=== PATIENT | female | born 1990 | race Caucasian/White ===

== ENCOUNTER 2021-07-21 09:33 | Emergency (ER) | payer OTHER ==
[~2021-07-21 09:33] MED LIST: IBUPROFEN400 MG PO
[2021-07-21 10:47] LABS: HEMOGLOBIN 12.6 gm/dl (12.3-15.3); RED BLOOD COUNT 4.19 M/UL (4.00-5.10); WHITE BLOOD COUNT 14.1 K/UL (4.5-11.0)
[2021-07-21 10:49] LABS: BUN/CREATININE RATIO 13 (0-10)
[2021-07-21] MEDS ORDERED: PHENERGAN 25 MG25 M1 PO (13:59)
[2021-07-21] MEDS ORDERED: BENTYL 20MG TAB20 MG PO (13:59)
== END 2021-07-21 14:03 | disposition home or self-care (01) ==
LOC: ER1 09:33
PROVIDERS: Emergency Medicine
DX: K62.5 Hemorrhage of anus and rectum (principal); R11.2 Nausea with vomiting, unspecified; F17.200 Nicotine dependence, unspecified, uncomplicated
CPT/HCPCS: 80053; 81001; 83690; 84703; 85025; 96374; 96376; 99284; J2405; Q9963; Q9967